=== PATIENT | female | born 1965 | race Caucasian/White ===

== ENCOUNTER 2018-08-11 07:28 | Emergency (ER) | payer BC, OTHER ==
[2018-08-11 08:15] VITALS: BP 120/79
--- NOTE | 2018-08-11 08:24 | UC ---
Skin Complaint HPI - HPI Summary HPI Summary: 53-year-old female who removed an engorged tick from her left side. She is unsure of the amount of time it had been attached. - History of Current Complaint Chief Complaint: UCBiteInjury Time Seen by Provider: 08/11/18 08:06 Stated Complaint: TICK BITE Hx Obtained From: Patient ?: No Onset/Duration: Sudden Onset Skin Exposure Onset/Duration: Hours Ago - Patient removed the tick today but she is unsure of how long it had been attached. Timing: Constant Onset Severity: Mild Current Severity: None Pain Intensity: 0 Location: Other - Left side Character: Pruritus, Redness Aggravating Factor(s): Nothing Alleviating Factor(s): Nothing Associated Signs & Symptoms: Positive: Negative - Allergy/Home Medications Allergies/Adverse Reactions: Allergies Allergy/AdvReac Type Severity Reaction Status Date / Time No Known Allergies Allergy Verified 08/11/18 08:10 PMH/Surg Hx/FS Hx/Imm Hx Previously Healthy: Yes - Surgical History Surgical History: None - Family History Known Family History: Positive: Non-Contributory - Social History Alcohol Use: Weekly Substance Use Type: None Smoking Status (MU): Never Smoked Tobacco Review of Systems All Other Systems Reviewed And Are Negative: Yes Skin: Positive: Other - Small red area left side just at the bra line. Is Patient Immunocompromised?: No Physical Exam Triage Information Reviewed: Yes Appearance: Well-Appearing, No Pain Distress, Well-Nourished Vital Signs: Initial Vital Signs Temp 97.3 F 08/11/18 08:08 Pulse 54 08/11/18 08:08 Resp 16 08/11/18 08:08 BP 120/79 08/11/18 08:08 Pulse Ox 100 08/11/18 08:08 Vital Signs Reviewed: Yes Skin: Positive: Other - Very small circular red area where the tick was located approximately 4 mm in diameter. There are no residual tick parts visible. Course/Dx - Course Course Of Treatment: The tick had already been removed by the patient but she didn't bring it with her and it was fully engorged. I'm going to treat her with doxycycline prophylactically because she's unsure of the timeframe it was attached. - Diagnoses Provider Diagnosis: Tick bite of chest wall Discharge - Sign-Out/Discharge Documenting (check all that apply): Patient Departure All imaging exams completed and their final reports reviewed: No Studies - Discharge Plan Condition: Good Disposition: HOME Prescriptions: DOXYcycline CAP(*) [DOXYcycline 100MG CAP(*)] 100 mg PO DAILY 1 Days #2 cap Patient Education Materials: Tick Bite (ED) Referrals: Pastora Boggs MD [Primary Care Provider] - Additional Instructions: Do not eat or drink dairy products, antacids or multivitamins 2 hours before you take the doxycycline or 2 hours after but take the doxycycline with food. Follow-up with your primary care provider if you develop fever, chills, joint aches or rashes in the next 2-4 weeks. - Billing Disposition and Condition Condition: GOOD Disposition: Home - Attestation Statements Provider Attestation: Per institutional requirements, I have reviewed the chart, however, I was not consulted specifically or made aware of this patient by the midlevel provider. I did not personally evaluate, interact with , or disposition this patient.
== END 2018-08-11 08:30 | disposition home or self-care (01) ==
LOC: UCCORT 07:28
DX: S20.369A Insect bite (nonvenomous) of unspecified front wall of thorax, initial encounter (principal); W57.XXXA Bitten or stung by nonvenomous insect and other nonvenomous arthropods, initial encounter; Y92.9 Unspecified place or not applicable
CPT/HCPCS: 99202; G0463